=== PATIENT | female | born 1990 | race African-American/Black ===

== ENCOUNTER 2024-09-13 16:05 | Emergency (ER) | payer OTHER ==
[~2024-09-13] VITALS: Ht 177.8 cm; Wt 102.1 kg
[2024-09-13] MEDS ORDERED: HYDR500C2 PO (16:22)
[2024-09-13] MEDS ORDERED: FERR-68 PO (16:22)
[2024-09-13] MEDS ORDERED: METOCLOPRAMIDE HCL 10 MG/2 ML VIAL ONE (17:14)
[2024-09-13] MEDS ORDERED: HYDROMORPHONE 1 MG/1 ML DISP.SYRIN ONE ×2 (17:15→18:23)
[2024-09-13 17:17] LABS: BASOPHILS # (AUTO) 0.1 K/UL (0.0-0.2); BASOPHILS % (AUTO) 1.2 % (0.0-2.0); DIFFERENTIAL COMMENT 0; EOSINOPHILS # (AUTO) 0.1 K/uL (0.0-0.7); EOSINOPHILS % (AUTO) 1.8 % (0.0-7.0); HEMATOCRIT 26.3 % (31.2-41.9); HEMOGLOBIN 8.3 g/dL (10.9-14.3); LYMPHOCYTES # (AUTO) 2.7 K/uL (0.8-4.8); LYMPHOCYTES % (AUTO) 49.1 % (20.5-51.5); MEAN CORPUSCULAR HGB CONC 32 g/dL (32.3-35.6); MEAN CORPUSCULAR VOLUME 60.3 fL (75.5-95.3); MONOCYTES # (AUTO) 0.5 K/uL (0.1-1.30); MONOCYTES % (AUTO) 9.4 % (0.0-11.0); NEUTROPHILS # (AUTO) 2.1 K/uL (1.8-8.9); NEUTROPHILS % (AUTO) 38.5 % (38.5-71.5); PLATELET COUNT (AUTO) 442 K/uL (179-408); RED BLOOD CELL COUNT(AUTO) 4.37 MIL/uL (3.63-4.92); RED CELL DISTRIBUTION WIDTH 21.3 % (12.3-17.7); WHITE BLOOD COUNT (AUTO) 5.4 K/uL (3.8-11.8)
[2024-09-13 17:21] LABS: CALCIUM 9.4 mg/dL (8.5-10.1); CARBON DIOXIDE 28 mmol/L (21-32); CHLORIDE 105 mmol/L (98-107); CREATININE 0.6 mg/dL (0.6-1.3); GLUCOSE 105 mg/dL (74-106); POTASSIUM 4.9 mmol/L (3.5-5.1); SODIUM SERUM 140 mmol/L (136-145); UREA NITROGEN, BLOOD 6 mg/dL (7-18)
[2024-09-13] MEDS: diphenhydrAMINE 50 MG/1 ML VIAL IV ONE (17:23)
[2024-09-13] MEDS: IV NORMAL SALINE 1000 ML BAG IV ONE ×2 (17:23→17:24)
[2024-09-13] MEDS: HYDROMORPHONE 1 MG/1 ML DISP.SYRIN IV ONE ×2 (17:23→18:33)
[2024-09-13] MEDS: METOCLOPRAMIDE HCL 10 MG/2 ML VIAL IV ONE (17:24)
[2024-09-13 17:26] LABS: ALANINE AMINOTRANSFERASE 43 U/L (14-59); ALBUMIN 2.9 g/dL (3.4-5.0); ALKALINE PHOSPHATASE 76 U/L (50-136); ASPARTATE AMINOTRANSFERASE 42 U/L (15-37); BILIRUBIN,DIRECT < 0.1 mg/dL (0.0-0.2); BILIRUBIN,TOTAL 0.4 mg/dL (0.2-1.0); TOTAL PROTEIN, SERUM 7.9 g/dL (6.4-8.2)
[2024-09-13] MEDS ORDERED: diphenhydrAMINE 50 MG/1 ML VIAL ONE (17:26)
[2024-09-13] MEDS ORDERED: OXYC-133 PO (18:29)
[2024-09-13] MEDS ORDERED: PROM6.2516 PO (18:29)
[2024-09-13] MEDS ORDERED: ALPR1TAB7 PO (18:29)
[2024-09-13 20:52] VITALS: BP 108/67; TEMP 98.7; O2SAT 99
== END 2024-09-13 20:25 | disposition home or self-care (01) ==
LOC: ER 16:07
DX: D57.00 Hb-SS disease with crisis, unspecified (principal); R11.2 Nausea with vomiting, unspecified; Z79.64 Long term (current) use of myelosuppressive agent; Z88.5 Allergy status to narcotic agent
CPT/HCPCS: 36415; 83690; 85025; A4606; A4663; J1171; J1200; J2765; J7040